=== PATIENT | male | born 1960 | race Caucasian/White ===

== ENCOUNTER 2021-10-06 18:08 | Emergency (ER) | payer OTHER, SELFPAY ==
[2021-10-06] VITALS (32 sets, daily range): BP systolic 141–180; BP diastolic 78–104; PULSE 58–94; RESP 11–25; TEMP 36.3–36.6; O2SAT 94–99
--- NOTE | ~2021-10-06 | XR_ITS ---
EXAMINATION: XR chest 1V portable Exam Date/Time: 10/06/2021 18:45 CDT HISTORY: central chest pain today Comparison: None available. RESULT: Lines, tubes, and devices: None. Lungs and pleura: Clear. Cardiomediastinal silhouette: Aortic ectasia. Other: No acute osseous or upper abdominal finding. IMPRESSION: No acute cardiopulmonary process. Reviewed, dictated and finalized at location K.
--- NOTE | ~2021-10-06 | CT_ITS ---
EXAMINATION: CT abdomen pelvis wo con DATE: 10/06/2021 18:54 INDICATION: epigastric discomfort with nausea TECHNIQUE: Computed tomography (CT) of the abdomen and pelvis was performed without intravenous contr ast. Automated exposure control and iterative reconstruction technique were employed. The dose-length product was 522.45 mGy-cm. COMPARISON: None FINDINGS: Lower thorax: Unremarkable Liver: Normal. Biliary/Gallbladder: Gallbladder is normal. No bile duct dilation. Pancreas: No mass or duct dilation. Spleen: Normal. Adrenals:No mass. Kidneys: 5.6 cm simple left midpole cyst. 2.4 cm right mid pole hemorrhagic or proteinaceous cyst. Ri ght upper pole hypodensity too small to characterize but likely represents a cyst. No hydronephrosis GI tract: Multiple loops of thin-walled dilated small bowel in the left upper and mid abdomen with co nsiderable surrounding mesenteric edema, fluid, and multiple sites suggestive of pneumatosis. No defi nitive transition point. Appendix not confidently visualized. Mesentery/Peritoneum: No ascites, mass, or free air. Retroperitoneum: No mass. This chronic arterial calcifications. Pelvis: Pelvic organs are within normal limits. Soft Tissues: Soft tissues and body wall unremarkable. Bones: No acute osseous finding. IMPRESSION: Small bowel obstruction with findings that can be seen with bowel ischemia. Infectious/inflammatory e tiologies are not excluded. A definitive transition point or obstructing mass is not detected. Reviewed, dictated and finalized at location K. IMPRESSION: Small bowel obstruction with findings that can be seen with bowel ischemia. Inf ectious/inflammatory etiologies are not excluded. A definitive transition point or obstructing mass is not detected.
--- NOTE | 2021-10-06 18:17 | ECG_ITS ---
Measurements Intervals [place] Rate: 60 P: 126 WY: 203 QRS: 191 QRSD: 104 T: 148 QT: 429 QTc: 432 Interpretive Statements SINUS RHYTHM ARM LEADS REVERSED [INVERTED P AND QRS IN I] NO PREVIOUS ECG AVAILABLE FOR COMPARISON Electronically Signed On 10-06-2021 19:28:36 CDT by Ruth Thomas M.D.
--- NOTE | 2021-10-06 18:32 | ED.ABDPAIN ---
HPI - Abdominal Pain General Chief Complaint: Abdominal Pain Stated Complaint: Epigastric pain Time Seen by Provider: 10/06/21 18:12 Source: patient and RN notes reviewed Mode of arrival: ambulatory Limitations: no limitations History of Present Illness MD elicited complaint: abdominal pain (epigastric discomfort only.) Pertinent past history: myocardial infarction Onset (ago): hour(s) (8) Pain Consistency: colicky Location: epigastric Severity: mild Pain scale (0-10): 4 Quality: cramping Radiation: none Exacerbating factors: nothing Relieving factors: nothing Associated symptoms: nausea Related Data Home Medications Medication Instructions Recorded Confirmed amoxicillin 875 mg-potassium 1 tablet PO QID 10/06/21 10/06/21 clavulanate 125 mg tablet atorvastatin 20 mg tablet 1 tablet DAILY 10/06/21 10/06/21 losartan 25 mg tablet 1 tablet DAILY 10/06/21 10/06/21 meloxicam 15 mg tablet 1 tablet DAILY 10/06/21 10/06/21 metoprolol tartrate 25 mg tablet 1 tablet BID 10/06/21 10/06/21 Allergies Allergy/AdvReac Type Severity Reaction Status Date / Time No Known Allergies Allergy Verified 10/06/21 18:21 Review of Systems Review of Systems: All systems reviewed & are unremarkable except as noted in HPI and below Constitutional: Constitutional: Reports no additional constitutional complaints Eyes: Eyes: Reports no additional eye complaints ENT: Reports system reviewed and no additional complaints, except as documented Cardiovascular: Cardiovascular: Reports no additional cardiovascular complaints Respiratory: Respiratory: Reports no additional respiratory complaints Gastrointestinal: Gastrointestinal: Reports no additional gastrointestinal complaints Musculoskeletal: Musculoskeletal: Reports no additional musculoskeletal complaints Integumentary/Breasts: Skin/Breast: Reports system reviewed and no additional complaints, except as docu Neurologic: Reports system reviewed and no additional complaints, except as documented Psychiatric: Psychiatric: Reports no additional psychiatric complaints Endocrine: Endocrine: Reports no additional endocrine complaints Hematologic/Lymphatic: Hematologic/Lymphatic: Reports no additional hematologic/lymphatic complaints Allergic/Immunologic: Allergic/Immunologic: Reports no additional allergic/immunologic complaints PMFSH Past Medical History Medical History (Updated 10/06/21 @ 21:50 by Wojciech Canada MD) Gastritis Small bowel obstruction Exam Const: General: healthy appearing and no acute distress Nutritional Appearance: well nourished Orientation/consciousness: patient oriented x3 Limitations: no limitations HENMT: Head: normal to inspection Ears: external ears normal, TM's normal bilaterally and EAC's normal General nose exam: Normal external nose present and Normal nares present Face and sinus: normal facial exam and sinuses nontender Mouth: Yes Normal oral and palatal mucosa present and Yes moist mucous membranes Teeth and gingiva: dentition normal Throat: posterior oropharynx normal Eyes: Conjunctivae: conjunctivae normal Pupils: Equal, round and reactive pupils present EOM: EOMs intact bilaterally Neck: Neck: normal visual inspection, no lymphadenopathy and no meningeal signs Chest: Chest palpation & inspection: normal inspection of the chest Resp: Effort & Inspection: normal respiratory effort Auscultation: clear to auscultation bilaterally Cardio: Rate: regular rate Rhythm: regular rhythm GI: GI Palp: Yes Soft to palpation and Yes Tenderness to palpation present (GI) (minimal epigastric and LLQ tenderness) Auscultation: normal bowel sounds : General: Yes bladder normal to palpation and Yes no CVA tenderness Back/Spine/Pelvis: Back: no CVA tenderness Skin: General skin exam: normal color Rashes: no rashes Wounds: no wounds Neuro: General: patient oriented x3, moves all extremities, no meningeal signs, no focal motor deficits an
[2021-10-06] MEDS: ASPIRIN 81 MG CHEWABLE TABLET 324 MG PO (18:33)
[2021-10-06] MEDS: ONDANSETRON INJ 4 MG/2 ML VIAL IV PUSH (18:40)
--- NOTE | 2021-10-06 18:45 | PC.NURSE ---
Pt off floor to radiology
[2021-10-06] MEDS: SODIUM CHLORIDE 0.9% IV 500 ML 999 ML IV CONT (19:14)
[2021-10-06] MEDS: PANTOPRAZOLE SODIUM IV 40 MG VIAL IV PUSH (19:16)
[2021-10-06 19:17] LABS: Basophils Absolute Auto 0.07 K/mm3 (0.00-0.10); Basophils Percent Auto 0.6 % (0.0-1.0); Eosinophils Absolute Auto 0.04 K/mm3 (0.02-0.50); Eosinophils Percent Auto 0.3 % (1.0-6.0); Hematocrit 48.6 % (40.0-54.0); Hemoglobin 16.9 g/dL (14.0-18.0); Immature Granulocyte Absolute 0.03 K/mm3 (0.00-0.00); Immature Granulocyte Percent A 0.3 % (0.0-0.0); Lymphocytes Absolute Auto 1.69 K/mm3 (1.10-4.50); Lymphocytes Percent Auto 14.2 % (18.0-42.0); Mean Corpuscular HGB Conc 34.8 g/dL (32.0-36.0); Mean Corpuscular Hemoglobin 31.1 pg (27.0-31.0); Mean Corpuscular Volume 89.5 fL (78.0-102.0); Mean Platelet Volume 11.2 fl (8.7-11.0); Monocytes Absolute Auto 0.59 K/mm3 (0.10-0.90); Neutrophils Absolute Auto 9.5 K/mm3 (1.7-7.2); Neutrophils Percent Auto 79.6 % (50.0-70.0); Platelet Count Result 220 K/mm3 (150-420); Red Blood Count 5.43 M/mm3 (4.70-6.10); Red Cell Distribution Width 12.2 % (11.6-14.4); White Blood Count 11.9 K/mm3 (4.8-10.8)
[2021-10-06 19:33] LABS: Alanine Aminotransferase 36 U/L (16-63); Albumin Level 4.2 g/dL (3.4-5.0); Alkaline Phosphatase 102 U/L (46-116); Anion Gap 9 mmol/L (8-16); Aspartate Amino Transferase 21 U/L (15-37); Bilirubin,Total 0.6 mg/dL (0.00-1.00); Blood Urea Nitrogen 17 mg/dL (7-18); Calcium 9.3 mg/dL (8.5-10.1); Carbon Dioxide 27 mmol/L (21-32); Chloride 102 mmol/L (98-108); Estimated CRCL calculation 82 ml/min; Estimated Glomerular Filt Rate > 60; Glucose 140 mg/dL (70-99); Lipase 108 U/L (73-393); NT Pro B Type Natriuretic Pept 70 pg/mL (0-125); Osmolality Calculated 289 mOsm/kg (285-295); Sodium 138 mmol/L (136-145); Total Protein 7.4 g/dL (6.4-8.2)
[2021-10-06 19:55] LABS: Add Urine Microscopic? YES; Appearance Urine Clear (Clear); Bilirubin Urine Negative (Negative); Blood Urine Negative (Negative); Color Urine Yellow (Yellow); Glucose Urine UA Negative (Negative); Ketones Urine Trace (Negative); Leukocyte Esterase Ur Negative LEU/UL (Negative); Nitrate Urine Negative (Negative); Protein Urine Negative (Negative); Urobilinogen Urine 0.2 mg/dL (0.2-1.0); pH Urine 6.5 (5.0-8.0)
[2021-10-06 20:03] LABS: Mucus Urine Moderate /lpf; RBC Urine 0-2 /hpf (0-2); Squamous Epithelial Cell Urine Occasional /hpf (Few)
--- NOTE | 2021-10-06 20:22 | PC.NURSE ---
ERP in to speak c pt and about POC for transfer. Pt wants to go to [facility]. paged, unable to get in contact c at this time.
--- NOTE | 2021-10-06 21:06 | PC.NURSE ---
Pt's states that pt has a GI doctor at [facility] on [facility] in [place]. RN contacted transfer number and was informed that beds are full and pt would be placed on waiting list.
--- NOTE | 2021-10-06 22:00 | PC.NURSE ---
Pt wants to attempt to take POV for transfer and is feeling questionable about getting the NG tube. Pt was educated on the importance of NG tube. Pt is still anxious.
[2021-10-06] MEDS: metroNIDAZOLE 500 MG/ISO 100ML 500 MG/100 ML BAG 100 MG IVPB (22:01)
[2021-10-06 22:18] LABS: Lactic Acid Reflex 1.4 mmol/L (0.4-2.0)
--- NOTE | 2021-10-06 22:28 | PC.NURSE ---
RN attempted to place 18F NG tube into both of pt's nostrils. Even after attempting to reeducate pt multiple times on the importance of the NG tube, pt still refused the NG tube. Pt states he cannot tolerate it. There was resistance met on pt's left nostril.
== END 2021-10-06 23:05 | disposition short-term general hospital (02) ==
PROVIDERS: Emergency Provider Emergency Medicine
DX: K56.609 Unspecified intestinal obstruction, unspecified as to partial versus complete obstruction (principal)
CPT/HCPCS: 36415; 71045; 74176; 80053; 81001; 83605; 83690; 83880; 84484; 85025; 93005; 96365; 96367; 96375; 99285; A9270; C9113; J0696; J2405; J7040

== ENCOUNTER 2021-10-07 00:55 | Inpatient (IN) | payer OTHER, SELFPAY ==
[2021-10-07] VITALS (7 sets, daily range): BP systolic 131–174; BP diastolic 82–92; PULSE 60–61; RESP 16–20; TEMP 36.9–37.5; O2SAT 96–98; BMI 24.9
--- NOTE | 2021-10-07 | ADMGEN ---
This patient, Ethan Concepcion, was admitted to Medical Room 259-01. Patient/family oriented to hospital policies and general routines including ID bracelet, bed and alarms, visiting hours, pain management, procedures, bathroom and other care routines, personal items, smoking policy, room service/diet, and visiting hours. Information on how to activate the Rapid Response Team has been discussed. Patient/Family are encouraged to report perceived risks to care and to ask questions if they do not understand what they are told or what they should do.
--- NOTE | ~2021-10-07 | XR_ITS ---
EXAMINATION: XR abdomen obstructive series DATE: 10/07/2021 08:35 INDICATION: Follow-up small bowel obstruction TECHNIQUE: Supine and upright views of the abdomen. FINDINGS: 10/07/2021 and 10/06/2021 The visualized lung parenchyma is normal.. There are mildly dilated small bowel loops in the left abd omen. Moderate colonic fecal loading. There are pelvic phleboliths. Gas and stool are seen throughout the colon to the level of the rectum. There is no free air. IMPRESSION: 1. Mildly dilated small bowel, consistent with small bowel obstruction versus ileus. Reviewed, dictated and finalized at location B.
--- NOTE | ~2021-10-07 | XR_ITS ---
EXAMINATION: XR abdomen/kub 1V DATE: 10/07/2021 05:49 INDICATION: Small bowel obstruction. TECHNIQUE: A supine view of the abdomen on 3 radiographs was obtained. COMPARISON: CT abdomen and pelvis 10/06/2021 FINDINGS: There is dilated small bowel in left abdomen. The colon is decompressed. IMPRESSION: 1. Persistently dilated small bowel in left abdomen, consistent with small bowel obstruction. Reviewed, dictated and finalized at location A. IMPRESSION: 1. Persistently dilated small bowel in left abdomen, consistent with small opal l obstruction.
--- NOTE | ~2021-10-07 | XR_ITS ---
EXAMINATION: XR sm bowel follow through DATE: 10/07/2021 12:48 INDICATION: Small bowel obstruction. TECHNIQUE: Oral contrast was administered, and a time course of radiographs of the abdomen was obtain ed. Fluoroscopy of the small bowel was not performed. Fluoroscopy exposure time was 0 minutes. The to leo number of images was 6. COMPARISON: CT abdomen and pelvis 10/06/2021 FINDINGS: There are no dilated loops of bowel. There is no abnormal mass or stricture. Transit time from the st omach to proximal colon was approximately 30 minutes. IMPRESSION: 1. Normal small bowel series. Reviewed, dictated and finalized at location A.
--- NOTE | 2021-10-07 00:49 | PM.IMHP ---
H&P: HPI History of Present Illness Date/Time: 10/07/21 00:49 Chief Complaint: Abdominal pain. Narrative: This is a 61-year-old male with past medical history significant for hypertension, dyslipidemia, tobacco dependence. Patient comes acid transfer from [facility] Emergency Room after he presented there with abdominal pain of about 8 hours duration since early in the morning with no vomiting but some nausea, had 1 episode of a bowel movement patient has been passing gas as well has been his usual state of health up until this he denies any fevers, rigors, changes in stool character, no melena, no bright red blood per rectum, no coffee-ground emesis, no weight loss. At the time of my visit patient denied any discomfort. Preliminary workup was significant for CT of abdomen and pelvis with several dilated and fluid air-filled bowel loops reported as small bowel obstruction. Patient is being admitted for further evaluation, management and treatment. Review of Systems Review of Systems: Abdominal pain. Constitutional: Constitutional: Denies chills, Denies fever(s) and Denies night sweats Eyes: Eyes: Denies change in vision ENT: Denies dysphagia, Denies vertigo, Denies dizziness and Denies odynophagia Cardiovascular: Cardiovascular: Denies chest pain, Denies syncope, Denies pedal edema, Denies irregular heart rhythm, Denies claudication, Denies lightheadedness, Denies radiating jaw, neck or arm pain, Denies palpitations, Denies dyspnea on exertion and Denies paroxysmal nocturnal dyspnea Respiratory: Respiratory: Denies change in phlegm color, Denies chest congestion, Denies cough and Denies excessive phlegm production Gastrointestinal: Gastrointestinal: Reports abdominal pain, Denies melena, Reports excessive flatus, Denies dyspepsia, Denies heartburn, Denies diarrhea, Reports nausea and Denies vomiting Genitourinary: Genitourinary: Reports no additional male genitourinary complaints and Reports as per HPI Musculoskeletal: Musculoskeletal: Denies back pain, Denies myalgias, Denies arthralgias and Denies joint swelling Integumentary/Breasts: Skin/Breast: Denies rash Neurologic: Denies focal weakness and Denies Sensory deficit (Neuro) Psychiatric: Psychiatric: Reports no additional psychiatric complaints and Reports as per HPI Endocrine: Endocrine: Denies cold intolerance, Denies fatigue, Denies flushing, Denies heat intolerance, Denies polyphagia, Denies polydipsia and Denies palpitations Hematologic/Lymphatic: Hematologic/Lymphatic: Reports no additional hematologic/lymphatic complaints and Reports as per [facility] Past Medical History Medical History (Updated 10/07/21 @ 03:32 by Isabel Rojas MD) Gastritis Small bowel obstruction Family History Family History (Updated 10/07/21 @ 00:35 by Caio Hernandez RN) Mother Cancer Father COPD (chronic obstructive pulmonary disease) Sibling Diabetes mellitus Social History Social History Smoking packs per day: 0.5 Smoking cigarettes per day: 10.0 Years smoked: 30 Smoking pack-years: 15.00 Smoking status: Current every day smoker Tobacco type: cigarettes Alcohol intake: never Substance use: never Spiritual care concerns: No Meds Home Medications and Allergies Home Medications Medication Instructions Recorded Confirmed Type atorvastatin 20 mg tablet 1 tablet DAILY 10/06/21 10/07/21 History losartan 25 mg tablet 1 tablet DAILY 10/06/21 10/07/21 History meloxicam 15 mg tablet 1 tablet DAILY 10/06/21 10/07/21 History metoprolol tartrate 25 mg tablet 0.5 tablet BID 10/06/21 10/07/21 History aspirin 81 mg chewable tablet 1 tablet PO DAILY 10/07/21 10/07/21 History cephalexin 500 mg capsule 1 cap PO QID 10/07/21 10/07/21 History Allergies Allergy/AdvReac Type Severity Reaction Status Date / Time No Known Allergies Allergy Verified 10/07/21 00:15 Exam Narrative: P
[2021-10-07] MEDS: DEXTROSE 5%/0.45% SOD CHL 1,000 ML 100 ML IV CONT ×2 (01:44→11:12)
[2021-10-07] MEDS: ACETAMINOPHEN 500 MG TABLET 1000 MG PO (04:11)
[2021-10-07 05:44] LABS: Basophils Absolute Auto 0.1 K/mm3 (0.0-0.1); Basophils Percent Auto 0.8 % (0.2-1.2); Eosinophils Absolute Auto 0.1 K/mm3 (0-0.3); Eosinophils Percent Auto 0.7 % (0-4.4); Hematocrit 43.9 % (42.0-52.0); Hemoglobin 15.7 g/dL (14.0-18.0); Immature Granulocyte Absolute 0.03 K/mm3 (0.00-0.031); Immature Granulocyte Percent A 0.3 % (0-0.5); Lymphocytes Absolute Auto 1.82 K/mm3 (0.9-3.2); Lymphocytes Percent Auto 20.4 % (18.3-44.2); Mean Corpuscular HGB Conc 35.8 g/dl (32-36); Mean Corpuscular Hemoglobin 31.1 pg (26-34); Mean Corpuscular Volume 86.9 fl (80-100); Mean Platelet Volume 10.9 fl (7.4-10.4); Monocytes Absolute Auto 0.5 K/mm3 (0.1-0.6); Monocytes Percent Auto 6.1 % (2.6-8.5); Neutrophils Absolute Auto 6.4 K/mm3 (1.3-6.7); Neutrophils Percent Auto 71.7 % (45.5-73.1); Platelet Count Result 205 k/mm3 (150-375); Red Blood Count 5.05 M/mm3 (4.6-6.20); Red Cell Distribution Width 12.3 % (11.5-14.5); White Blood Count 8.9 K/mm3 (4.5-10.0)
[2021-10-07 05:59] LABS: Anion Gap 3 mmol/L (8-16); Blood Urea Nitrogen 11 mg/dL (9-20); Calcium 8.7 mg/dL (8.4-10.2); Carbon Dioxide 26 mmol/L (22-30); Chloride 108 mmol/L (98-107); Estimated CRCL calculation 97 ml/min; Estimated Glomerular Filt Rate > 60; Glucose 163 mg/dL (65-110); Magnesium 2.1 mg/dL (1.6-2.3); Phosphorus 2.7 mg/dL (2.5-4.5); Potassium 3.8 mmol/L (3.4-5.0); Sodium 137 mmol/L (137-145)
[2021-10-07] MEDS: ENOXAPARIN 40 MG/0.4 ML SYRINGE SUB-Q (08:37)
[2021-10-07] MEDS: BISACODYL 10 MG SUPPOSITORY RECTAL (10:04)
--- NOTE | 2021-10-07 11:24 | PM.CNGS ---
Assessment and Plan Assessment and plan (1) Small bowel obstruction: Code(s): K56.609 - Unspecified intestinal obstruction, unspecified as to partial versus complete obstruction Status: Acute Assessment and Plan: CT scan reviewed and discussed with the patient in detail. This suggests a small bowel obstruction with mesenteric edema, fluid, and possible pneumatosis concerning for bowel ischemia versus infectious or inflammatory etiology. The patient does not clinically correlate with the CT findings. His abdominal exam is completely benign. He is no longer having any abdominal pain and has not had any nausea or vomiting. His lactic acid is normal and his WBC count is actually normal today. He does not have any complaints of diarrhea, which would suggest possibly gastroenteritis as an etiology. He has no previous abdominal surgeries that would suggest he would be at high risk for having intra-abdominal adhesions. The etiology of this is unclear, but the suspicion of bowel ischemia is extremely low. His plain films this morning show some improvement in his small bowel dilatation and he actually has a fair amount of stool and gas throughout his colon. He is refusing an NG tube, but has improved significantly since being admitted. We ordered a Gastrografin small bowel follow through to further evaluate, which was completely normal with at transit time to the colon in 30 minutes. There was no evidence of ulceration or abnormalities of the small bowel. Will allow the patient to try clear liquids and monitor him closely. Repeat labs again tomorrow morning. (2) Coronary artery disease: Code(s): I25.10 - Atherosclerotic heart disease of [place] coronary artery without angina pectoris Status: Acute Assessment and Plan: S/p stent placement x 3 in 2017 at [facility]. Currently on once daily baby aspirin. (3) Type 2 diabetes mellitus: Code(s): E11.9 - Type 2 diabetes mellitus without complications Status: Acute Assessment and Plan: Not currently on any home medication and reportedly diet-controlled. Glucose up 160. Will add diabetic diet restrictions when advancing diet. Management per Hospitalist. (4) Hypertension: Code(s): I10 - Essential (primary) hypertension Status: Acute Assessment and Plan: BP slightly high. Okay to resume oral home medications from our standpoint. (5) Tobacco dependence: Code(s): F17.200 - Nicotine dependence, unspecified, uncomplicated Status: Acute Assessment and Plan: Encouraged cessation. Additional Plan I have discussed the patient's case and plan of care with Dr. Bourgeois. Thank you for allowing us to see the patient in consultation and we will continue to follow along with you. History of Present Illness Consult details Consult date: 10/07/21 Reason for consult: other (Small-bowel obstruction with CT suggesting possible ischemia) Requesting physician: Isabel Rojas MD Narrative: This is a 61-year-old male with a history of myocardial infarction, hypertension, and hyperlipidemia who was directly admitted from [place] ER overnight for small bowel obstruction. The patient reports a sudden onset of abdominal pain 2 nights ago. He reports eating popcorn, a turkey sandwich, cantaloupe, and drinking coffee for dinner Thursday night. About an hour or 2 after eating, he began having abdominal pain. He points to the center of his abdomen when describing the location of pain. He reports associated nausea, but no vomiting. After having pain, he had a good formed bowel movement. Due to the unrelenting pain, he presented to the ER in [place] yesterday. CT scan of the abdomen and pelvis showed a small bowel obstruction with findings that can be seen with bowel ischemia/infection/inflammation, with findings of mesenteric edema, fluid, and suggestion of pneumatosis. Labs showed a WBC 11,900, lactic acid 14, and glucose 140. Chest x-ray showed no
[2021-10-07] MEDS: METOPROLOL TARTRATE 12.5 MG TABLET BY MOUTH (16:57)
[2021-10-07] MEDS: LOSARTAN POTASSIUM 25 MG TABLET BY MOUTH (17:19)
[2021-10-07] MEDS: ATORVASTATIN 20 MG TABLET BY MOUTH (17:19)
[2021-10-08 00:39] VITALS: BP 135/88; PULSE 56; RESP 14; TEMP 36.4; O2SAT 97
[2021-10-08 03:56] VITALS: BP 156/87; PULSE 55; RESP 16; TEMP 36.4; O2SAT 98
[2021-10-08 05:32] LABS: Hematocrit 44.6 % (42.0-52.0); Hemoglobin 15.5 g/dL (14.0-18.0); Mean Corpuscular HGB Conc 34.8 g/dl (32-36); Mean Corpuscular Hemoglobin 30.6 pg (26-34); Mean Corpuscular Volume 88.1 fl (80-100); Mean Platelet Volume 10.8 fl (7.4-10.4); Platelet Count Result 206 k/mm3 (150-375); Red Blood Count 5.06 M/mm3 (4.6-6.20); Red Cell Distribution Width 12.3 % (11.5-14.5); White Blood Count 9.2 K/mm3 (4.5-10.0)
[2021-10-08 05:40] LABS: Anion Gap 1 mmol/L (8-16); Blood Urea Nitrogen 9 mg/dL (9-20); Calcium 8.7 mg/dL (8.4-10.2); Carbon Dioxide 30 mmol/L (22-30); Chloride 107 mmol/L (98-107); Estimated CRCL calculation 86 ml/min; Estimated Glomerular Filt Rate > 60; Glucose 127 mg/dL (65-110); Potassium 3.7 mmol/L (3.4-5.0); Sodium 138 mmol/L (137-145)
[2021-10-08] MEDS: LOSARTAN POTASSIUM 25 MG TABLET BY MOUTH (08:59)
[2021-10-08] MEDS: ATORVASTATIN 20 MG TABLET BY MOUTH (08:59)
[2021-10-08] MEDS: ENOXAPARIN 40 MG/0.4 ML SYRINGE SUB-Q (09:00)
[2021-10-08 09:01] VITALS: PULSE 55
[2021-10-08 10:01] VITALS: BP 145/77; PULSE 61; RESP 16; TEMP 36.7; O2SAT 98
--- NOTE | 2021-10-08 11:13 | PM.PNGS ---
Progress Note: A&P Assessment and Plan (1) Small bowel obstruction: Code(s): K56.609 - Unspecified intestinal obstruction, unspecified as to partial versus complete obstruction Status: Acute Assessment and Plan: Gastrografin SBFT unremarkable with normal transit time of 30 minutes and no abnormalities of the small bowel. No indication for surgical intervention at this time. Okay to discharge from our standpoint now that he is tolerating a solid diet. Recommend f/u with PCP to discuss any further outpatient work-up. F/u with surgery only as needed. We also recommend stopping his meloxicam, which he is taking for shoulder pain, in case he could have an ulcer that contributed to this episode. I recommended he discuss this with his [employer] as well at [facility] who he will be seeing in the near future for a colonoscopy. (2) Coronary artery disease: Code(s): I25.10 - Atherosclerotic heart disease of [place] coronary artery without angina pectoris Status: Acute Assessment and Plan: S/p stent placement x 3 in 2017 at [facility]. Currently on once daily baby aspirin. (3) Type 2 diabetes mellitus: Code(s): E11.9 - Type 2 diabetes mellitus without complications Status: Acute Assessment and Plan: Continue diabetic diet, f/u with PCP. (4) Hypertension: Code(s): I10 - Essential (primary) hypertension Status: Acute (5) Tobacco dependence: Code(s): F17.200 - Nicotine dependence, unspecified, uncomplicated Status: Acute Assessment and Plan: Encouraged cessation again today. F/u with PCP for management. Additional Plan I have discussed the patient's case and plan of care with Dr. Borugeois. Subjective Subjective Date/Time Seen: 10/08/21 11:13 Patient reports: no new complaints, feels better, tolerating a regular diet, flatus, bowel movement and afebrile Interval history: Patient seen and examined. He denies any abdominal pain or nausea. He does report 1 episode of vomiting once on the floor about 2 hours after his Gastrografin study, but did not feel nauseated and has not had any other episodes since. He denies having any abdominal pain yesterday at all. Tolerated clear liquids and has been advanced to a regular diet this morning. He has tolerated the regular diet for breakfast. He has had multiple liquid bowel movements following the contrast study last night and today. He is passing lots of gas. No other complaints at this time. The patient does endorse that he had a fairly large quantity of popcorn prior to the onset of symptoms at home, and was wondering if this could have caused his issues. Review of Systems Review of Systems: All systems reviewed & are unremarkable except as noted in HPI and below Exam Const: General: comfortable, no acute distress and awake Orientation/consciousness: patient oriented x3 GI: Inspection: normal to inspection and non-distended GI Palp: Yes Soft to palpation, No Tenderness to palpation present (GI), No Guarding due to palpation present (GI), No Rigid due to palpation, Yes No hepatosplenomegaly present, No Hernia present, No Palpable mass present and No Rebound tenderness present Percussion: Yes normal to percussion Auscultation: normal bowel sounds Neuro: General: moves all extremities and no focal motor deficits Extrem: General: normal to inspection Psych: Insight: Good insight present (Psych) Judgement: Good judgement present (Psych) Objective Data Vital Signs Vital Signs: Vital Signs - 24 hr 10/07/21 16:00 10/07/21 16:57 10/07/21 20:00 Temperature 98.4 F Pulse Rate 60 60 60 Respiratory Rate 16 16 Blood Pressure 163/92 H Pulse Oximetry 98 98 Oxygen Delivery Room Air 10/07/21 22:03 10/08/21 00:39 10/08/21 03:56 Temperature 98.6 F 97.6 F 97.6 F Pulse Rate 60 56 L 55 L Respiratory Rate 16 14 16 Blood Pressure 131/82 135/88 156/87 H Pulse Oximetry 97 97 98 Oxygen Delivery
--- NOTE | 2021-10-08 11:38 | PM.DS ---
DS: Admitting Diagnosis Discharge Date October 08, 2021 Admitting Diagnosis Small-bowel obstruction DS: Discharge Diagnosis Discharge Diagnosis (1) Small bowel obstruction: Code(s): K56.609 - Unspecified intestinal obstruction, unspecified as to partial versus complete obstruction Status: Acute Assessment and Plan: Supportive care alleviated small-bowel obstruction No further plans for surgery, discharge home (2) Abdominal pain: Code(s): R10.9 - Unspecified abdominal pain Status: Acute Assessment and Plan: Supportive care Improved (3) Tobacco dependence: Code(s): F17.200 - Nicotine dependence, unspecified, uncomplicated Status: Acute Assessment and Plan: Cessation counseled DS: Summary Hospital Course Hospital Course: The patient was admitted for abdominal pain found have possible small-bowel obstruction. He refused NG tube and conservative therapy was initiated. A subsequent self-resolved and is tolerating a diet. Surgery consulted the patient did not have any further recommendations. Patient be discharged home Time Spent with Patient Time attestation: Total time spent providing and/or coordinating discharge services: Exam Narrative: Patient is laying in bed Const: General: cooperative, comfortable, no acute distress, well developed, alert, awake and other (Well-appearing) Nutritional Appearance: average body habitus Orientation/consciousness: patient oriented x3 Limitations: no limitations HENMT: Head: normal to inspection, normocephalic and atraumatic Ears: hearing grossly normal bilaterally Face and sinus: normal facial exam Eyes: General: appearance normal, both eyes and all related structures Pupils: Equal, round and reactive pupils present EOM: EOMs intact bilaterally Neck: Neck: full ROM, no lymphadenopathy and no JVD Thyroid: thyroid normal Lymphatic: no lymphadenopathy noted Resp: Effort & Inspection: normal respiratory effort and able to speak in complete sentences Auscultation: clear to auscultation bilaterally Cardio: Jugular venous distension: no JVD Rate: regular rate Rhythm: regular rhythm Heart sounds: S1 normal heart sound present and S2 normal heart sound present GI: Inspection: normal to inspection : General: Yes deferred Skin: Rashes: no rashes Wounds: no wounds Neuro: General: patient oriented x3 and CN's II-XI intact bilaterally Cranial nerves: Yes CN's II-XII intact bilaterally and Yes Equal, round and reactive pupils present Cognition (Neuro): normal cognition Speech: normal speech Gait exam (Neuro): Normal gait present Motor exam (neuro): 5/5 motor strength present throughout Sensory Exam: No Sensory deficit (Neuro) Extrem: General: normal to inspection, full ROM, no joint enlargement and no pedal edema DS: Data Data Completed and Pending Labs on day of discharge: Labs from last 24 hours 10/08/21 10/08/21 05:22 05:22 WBC 9.2 RBC 5.06 Hgb 15.5 Hct 44.6 MCV 88.1 MCH 30.6 MCHC 34.8 RDW 12.3 Plt Count 206 MPV 10.8 H Sodium 138 Potassium 3.7 Chloride 107 Carbon Dioxide 30 Anion Gap 1 L BUN 9 Creatinine 0.80 Estim Creat Clear Calc 86 Estimated GFR > 60 Glucose 127 H Calcium 8.7 Discharge Plan Discharge Attending physician on discharge: Bull Back Consulting providers: Deacon Bourgeois Discharging Clinician: Bull Back Patient Disposition: Home, Self-Care Activity: no preference Diet: as tolerated Discharge Instructions: Follow-up with your PCP in 2 weeks. We had Radiology created disc of all the images you had while hospitalized. Please bring this disc 2 year follow-up appointment so they will be able to review these at your follow-up. If you develop abdominal pain or vomiting, return to the ED. Would strongly encourage you to quit smoking. Would also recommend to stop your meloxicam and try to transiti
== END 2021-10-08 13:06 | disposition home or self-care (01) | DRG 390 ==
PROVIDERS: Admitting Provider Internal Medicine; Visit Provider Chiropractor
DX: K56.609 Unspecified intestinal obstruction, unspecified as to partial versus complete obstruction (principal); F17.210 Nicotine dependence, cigarettes, uncomplicated; Z79.899 Other long term (current) drug therapy; Z80.9 Family history of malignant neoplasm, unspecified; Z79.82 Long term (current) use of aspirin; E78.5 Hyperlipidemia, unspecified; I10 Essential (primary) hypertension; I25.2 Old myocardial infarction; I25.10 Atherosclerotic heart disease of native coronary artery without angina pectoris; E11.9 Type 2 diabetes mellitus without complications
CPT/HCPCS: 36415; 74018; 74019; 74250; 80048; 83735; 84100; 85025; 85027; A9270; J1650

== ENCOUNTER 2023-01-19 09:01 | Emergency (ER) | payer OTHER, SELFPAY ==
[2023-01-19 09:08] VITALS: BP 158/100; PULSE 71; RESP 16; TEMP 36.8; O2SAT 100
[2023-01-19] MEDS: CYCLOBENZAPRINE HCL 5 MG TABLET PO (10:49)
[2023-01-19] MEDS: ACETAMINOPHEN 500 MG TABLET 1000 MG PO (10:49)
[2023-01-19] MEDS: LIDOCAINE 5% PATCH 1 PATCH TRANSDERM (10:49)
--- NOTE | 2023-01-19 11:01 | ED.BACK ---
HPI - Back Pain/Injury General Chief Complaint: Back Pain/Injury Stated Complaint: Back pain right side Time Seen by Provider: 01/19/23 09:53 History of Present Illness HPI Narrative: This is a 62-year-old male, with chronic back pain, high blood pressure and hyperlipidemia, presents emergency department complaining of right-sided back and arm pain. The patient states this morning, he woke and felt a muscle spasm on the right back, radiating to the right arm. He rates this 610, described as cramping. He denies recent trauma but has been some heavy lifting recently. Related Data Home Medications Medication Instructions Recorded Confirmed atorvastatin 20 mg tablet 1 tablet DAILY 10/06/21 10/07/21 losartan 25 mg tablet 1 tablet DAILY 10/06/21 10/07/21 metoprolol tartrate 25 mg tablet 0.5 tablet BID 10/06/21 10/07/21 aspirin 81 mg chewable tablet 1 tablet PO DAILY 10/07/21 10/07/21 Allergies Allergy/AdvReac Type Severity Reaction Status Date / Time No Known Allergies Allergy Verified 01/19/23 09:02 Review of Systems Review of Systems: CONSTITUTIONAL: Denies fever, chills, or sweats. CARDIOVASCULAR: Denies chest pain, palpitations, or edema. RESPIRATORY: Denies cough or dyspnea. GASTROINTESTINAL: Denies abdominal pain, nausea, vomiting, or diarrhea. GENITOURINARY: Denies dysuria or hematuria. SKIN: Denies rash or itching. MUSCULOSKELETAL: Right-sided back pain denies joint pain, or myalgia. NEUROLOGIC: Denies headache, numbness, dizziness, or weakness. PSYCHIATRIC: Denies anxiety or depression. [facility] Past Medical History Medical History Coronary artery disease [place] in 2017 with coronary artery stent placement x 3 at [facility] Hyperlipidemia Hypertension Type 2 diabetes mellitus Surgical History Surgical History History of heart artery stent Family History Family History Mother Cancer Father COPD (chronic obstructive pulmonary disease) Sibling Diabetes mellitus Social History Social History Smoking packs per day: 0.5 Smoking cigarettes per day: 10.0 Years smoked: 30 Smoking pack-years: 15.00 Smoking status: Current every day smoker Tobacco type: cigarettes Alcohol intake: never Substance use: never Spiritual care concerns: No Exam Narrative: GENERAL: Well-developed, well-nourished, and in no acute distress. HEAD: Normocephalic, atraumatic. EYES: PERRLA and EOMI. CHEST: Clear to auscultation. No respiratory distress. No wheezes rales or rhonchi HEART: Regular rate and rhythm. No murmur heard. Normal peripheral pulses. ABDOMEN: Soft, nontender, nondistended, normal active bowel sounds. EXTREMITIES: Normal range of motion. No edema. BACK: Paraspinal muscle spasm noted at T6-8. No midline spine tenderness to palpation, no step-off or crepitus SKIN: Warm, dry, no rash. NEURO: Alert and oriented x3. Moving all 4 limbs purposefully. PSYCH: Normal mood and affect. Course Course Emergency Course: 11:20 - On reevaluation, the patient states his pain is much improved. I suspect muscle spasm as cause of his pain. Will discharge with muscle relaxers, lidocaine patch and recommendation for Tylenol for pain. Discussed return and emergency precautions including signs/symptoms of ACS and respiratory distress. The patient voiced understanding and is comfortable with the plan. All questions answered to his satisfaction. Vital Signs Vital signs: Vital Signs Temperature 98.2 F 01/19/23 09:08 Pulse Rate 71 01/19/23 09:08 Respiratory Rate 16 01/19/23 09:08 Blood Pressure 158/100 H 01/19/23 09:08 Pulse Oximetry 100 01/19/23 09:08 Temperature 98.2 F 01/19/23 09:08 Pulse Rate 70 01/19/23 11:38 Respiratory Rate 18 01/19/23 11:38 Blo
[2023-01-19 11:38] VITALS: BP 159/90; PULSE 70; RESP 18; O2SAT 100
== END 2023-01-19 11:40 | disposition home or self-care (01) ==
PROVIDERS: Emergency Provider Preventive Medicine Aerospace Medicine
DX: M54.6 Pain in thoracic spine (principal); M62.830 Muscle spasm of back; I25.10 Atherosclerotic heart disease of native coronary artery without angina pectoris; I25.2 Old myocardial infarction; I10 Essential (primary) hypertension; E78.5 Hyperlipidemia, unspecified; E11.9 Type 2 diabetes mellitus without complications; F17.210 Nicotine dependence, cigarettes, uncomplicated; Z95.5 Presence of coronary angioplasty implant and graft; Z79.82 Long term (current) use of aspirin
CPT/HCPCS: 99283; A9270

== ENCOUNTER 2024-03-30 07:24 | Emergency (ER) | payer OTHER, SELFPAY ==
[2024-03-30] VITALS (9 sets, daily range): BP systolic 154–189; BP diastolic 76–112; PULSE 74–90; RESP 14–20; TEMP 36.5–37.3; O2SAT 97–99
--- NOTE | ~2024-03-30 | CT_ITS ---
CTA chest abdomen pelvis Ordering provider: Aditya Cespedes MD History: . Back pain radiating to chest/abdomen . Comparison: None. Technique: CT angiogram chest, abdomen and pelvis was performed following timed intravenous injection of contrast. Thin slice axial images and reformatted coronal images were obtained. Three dimensional reformatted images of the chest were also obtained using a nfona workstation. Radiation reduction t echnique utilized. The dose-length product was 583.9 mGy-cm. 100 mL Omnipaque 350 was given IV. FINDINGS: CHEST: --THORACIC AORTA: Mild atheromatous disease. No aneurysm, dissection or mediastinal hematoma. Ascending aorta measures 3.6 cm. --GREAT VESSELS: Normal as visualized. --PULMONARY ARTERIES: No pulmonary embolus. --VISUALIZED THORACIC INLET: Normal. --MEDIASTINUM: Coronary arteries: Mild atheromatous disease. Heart/other: The heart is not enlarged. Lymph nodes: No mediastinal or hilar adenopathy. --LUNGS: 6 mm nodule is seen in the right middle lobe. 6 mm nodule is also seen in the right lower lobe. Tiny nodule is also seen in the right lower lobe adjacent to the transverse fissure measuring 4 mm. No pul monary masses. No infiltrates or effusions. No pneumothorax. Dependent atelectatic changes. --MUSCULOSKELETAL: Superficial soft tissues: The superficial soft tissues are normal. Bones: Age appropriate degenerative changes of the spine. ABDOMEN/PELVIS: --MUSCULOSKELETAL: Bones: Age appropriate degenerative changes of the spine. Superficial soft tissues: The superficial soft tissues are normal. --UPPER ABDOMINAL ORGANS: Liver: Small enhancing area seen in the dome of the liver segment #7/8 differential include HCC versu s hemangioma versus arteriovenous shunting. Three-month CT follow-up is advised. Gallbladder: Normal. Spleen: Normal. Stomach/duodenum: Normal. Pancreas: Normal. Slightly prominent pancreatic duct. Adrenals: Right adrenal adenoma is seen measuring 1.6 cm. No follow-up is advised unless clinically w arranted. Kidneys: Small lesion is seen in the right kidney lower pole measuring 1.9 cm which may be a cyst. Ma ss cannot be excluded. Tiny cyst in the right kidney upper pole is also noted. Ultrasound evaluation advised. Large cyst is seen in the left kidney midpole measuring 6 cm. --PELVIC ORGANS: The bladder is normal. No bladder stones. --BOWEL AND MESENTERY: Colon: No evidence of diverticulitis.. Slightly thickened wall of the appendix with measurement of 9 mm seen. Clinical evaluation for the area and follow-up is advised. Small Bowel: Normal. No obstruction. Peritoneum/mesentery: No free air or free fluid. No mesenteric lymphadenopathy. --RETROPERITONEUM: No retroperitoneal lymphadenopathy. --ARTERIES: ABDOMINAL AORTA: Mild atheromatous disease. No aneursym or dissection. RENAL ARTERIES: 2 renal arteries are seen in the right side. Otherwise, Normal. CELIAC AXIS: Normal. SMA: Normal. CAS: Normal. ILIAC AND VISUALIZED FEMORAL ARTERIES: Atherosclerotic changes with mild narrowing. MESENTERIC ARTERIES: Normal. IMPRESSION: CHEST: 1. No evidence of aortic dissection or pulmonary embolism. 2. No acute cardiopulmonary pathology. 3. Nodules in the right middle and lower lobe with the largest measuring 6 mm. 6 months follow-up CT is advised. ABDOMEN/PELVIS: 1. No evidence of aneurysm or dissection seen in the aorta. 2. Slightly thickened wall of the appendix. No surrounding fat stranding. Clinical correlation advis ed. 3. Small enhancing area in the liver. Follow-up advised to exclude hepatocellular carcinoma. 4. Right adrenal adenoma. No follow-up advised unless clinically warranted. 5. Allergy density in the right kidney lower pole which may be a complex cyst versus a mass. Ultraso und evaluation advised. 6. Bilateral renal cysts. Reviewed, dictated and finalized at location A. HANDISING INTERN IMPRESSION: CHEST: 1. No evidence of aortic dissection or pulmonary embolism. 2. No acute cardiopulmonary pathology. 3. Nodules in the right middle and lower lobe with the largest measuring 6 mm. 6 months follow-up CT is advised. ABDOMEN/PELVIS: 1. No evidence of aneurysm or dissection seen in the aorta. 2. Slightly thickened wall of the appendix. No surrounding fat stranding. Clin ical correlation advised. 3. Small enhancing area in the liver. Follow-up advised to exclude hepatocellu lar carcinoma. 4. Right adrenal adenoma. No follow-up advised unless clinically warranted. 5. Allergy density in the right kidney lower pole which may be a complex cyst versus a mass. Ultrasound evaluation advised. 6. Bilateral renal cysts.
--- NOTE | ~2024-03-30 | XR_ITS ---
EXAMINATION: XR chest 2V DATE: 03/30/2024 08:18 INDICATION: Chest pain. TECHNIQUE: Frontal and lateral views of the chest were obtained. COMPARISON: Chest single view 10/06/2021, CT abdomen and pelvis 10/06/2021 FINDINGS: There is mild atelectasis at left lung base. No pleural effusion or pneumothorax. The heart size is normal. IMPRESSION: 1. Mild atelectasis at left lung base. Reviewed, dictated and finalized at location A. PMENT INSPECTOR
--- NOTE | 2024-03-30 07:37 | ECG_ITS ---
Test Date: 2024-03-30 07:39:49 Measurements Intervals [place] Rate: 87 P: 51 SC: 193 QRS: -23 QRSD: 108 T: 43 QT: 380 QTc: 460 Interpretive Statements SINUS RHYTHM CANNOT R/O SEPTAL INFARCT, AGE INDETERMINATE ABNORMAL ECG No previous ECG available for comparison Electronically Signed On 03-30-2024 08:27:13 DUMP ATTENDANT by Richar Trejo D.O.
[2024-03-30 08:02] LABS: Basophils Absolute Auto 0.1 K/mm3 (0.0-0.1); Basophils Percent Auto 0.4 % (0.2-1.2); Eosinophils Absolute Auto 0.1 K/mm3 (0-0.3); Eosinophils Percent Auto 0.7 % (0-4.4); Hematocrit 45.3 % (42.0-52.0); Hemoglobin 16.1 g/dL (14.0-18.0); Immature Granulocyte Absolute 0.07 K/mm3 (0.00-0.031); Immature Granulocyte Percent A 0.6 % (0-0.5); Lymphocytes Absolute Auto 1.43 K/mm3 (0.9-3.2); Lymphocytes Percent Auto 12.3 % (18.3-44.2); Mean Corpuscular HGB Conc 35.5 g/dl (32-36); Mean Corpuscular Hemoglobin 30.8 pg (26-34); Mean Corpuscular Volume 86.8 fl (80-100); Mean Platelet Volume 11.1 fl (7.4-10.4); Monocytes Absolute Auto 0.9 K/mm3 (0.1-0.6); Neutrophils Absolute Auto 9.1 K/mm3 (1.3-6.7); Platelet Count Result 204 k/mm3 (150-375); Red Blood Count 5.22 M/mm3 (4.6-6.20); Red Cell Distribution Width 12.6 % (11.5-14.5); White Blood Count 11.6 K/mm3 (4.5-10.0)
[2024-03-30 08:13] LABS: Prothrombin Time 13.2 Seconds (11.1-14.7)
[2024-03-30 08:14] LABS: Partial Thromboplastin Time 29.8 Seconds (22.3-36.8)
[2024-03-30 08:16] LABS: Alanine Aminotransferase 18 U/L (6-50); Albumin Level 4.4 g/dL (3.5-5.1); Alkaline Phosphatase 110 U/L (38-126); Anion Gap 8 mmol/L (4-12); Aspartate Amino Transferase 23 U/L (17-59); Bilirubin,Total 0.9 mg/dL (0.2-1.3); Blood Urea Nitrogen 12 mg/dL (9-20); Calcium 9.3 mg/dL (8.4-10.2); Carbon Dioxide 26 mmol/L (22-30); Chloride 102 mmol/L (98-107); Estimated CRCL calculation 84 ml/min; Estimated Glomerular Filt Rate > 60; Glucose 168 mg/dL (65-110); Lipase 30 U/L (23-300); Sodium 136 mmol/L (137-145)
[2024-03-30 08:27] LABS: Troponin I < 0.012 ng/mL (0.000-0.034)
[2024-03-30 11:15] LABS: Troponin I < 0.012 ng/mL (0.000-0.034)
--- NOTE | 2024-03-30 13:25 | ED.GENADULT ---
HPI - General Adult General Chief complaint: Back Pain/Injury Stated complaint: mid back pain Time Seen by Provider: 03/30/24 07:52 History of Present Illness HPI narrative: this is a 63-year-old male presenting ED with chief complaint of back pain. Patient developed the pain at 5:15 a.m.. It is a sharp pain in his midthoracic area on the right. It is nonradiating constant. He says it feels like a pulled muscle. He has had a dry cough. He denies fevers chills chest pain, nausea vomiting. He does have some abdominal discomfort in the epigastric area that he relates to eating some chicken nuggets last night. Yesterday the patient spent 10 hours at the [employer]. No other complaints. Related Data Home Medications Medication Instructions Recorded Confirmed atorvastatin 20 mg tablet 1 tablet DAILY 10/06/21 10/07/21 losartan 25 mg tablet 1 tablet DAILY 10/06/21 10/07/21 metoprolol tartrate 25 mg tablet 0.5 tablet BID 10/06/21 10/07/21 aspirin 81 mg chewable tablet 1 tablet PO DAILY 10/07/21 10/07/21 Allergies Allergy/AdvReac Type Severity Reaction Status Date / Time No Known Allergies Allergy Verified 01/19/23 09:02 [facility] Past Medical History Medical History Coronary artery disease [place] in 2017 with coronary artery stent placement x [address] [facility] Hyperlipidemia Hypertension Type 2 diabetes mellitus Surgical History Surgical History History of heart artery stent Family History Family History Mother Cancer Father COPD (chronic obstructive pulmonary disease) Sibling Diabetes mellitus Social History Social History Smoking packs per day: 0.5 Smoking cigarettes per day: 10.0 Years smoked: 30 Smoking pack-years: 15.00 Smoking status: Current every day smoker Tobacco type: cigarettes Alcohol intake: never Substance use: never Spiritual care concerns: No Exam Narrative: APPEARANCE: No apparent distress. Head: atraumatic. EYES: EOMI, NOSE: Atraumatic NECK: Trachea midline RESPIRATORY: No increased rate of breathing, clear to auscultation CARDIOVASCULAR: RRR, no peripheral edema ABDOMINAL: Non-distended, mild epigastric discomfort, no guarding rebound MUSCULOSKELETAl: Tenderness to palpation in the right parathoracic region. No overlying skin changes NEURO: Alert. Moving 4/4 extremities SKIN:: Warm, dry. Normal color PSYCHIATRIC: Normal affect Course Vital Signs Vital signs: Vital Signs Temperature 97.9 F 03/30/24 07:30 Pulse Rate 89 03/30/24 07:30 Respiratory Rate 16 03/30/24 07:30 Blood Pressure 189/104 H 03/30/24 07:30 Pulse Oximetry 99 03/30/24 07:30 Oxygen Delivery Room Air 03/30/24 07:30 Temperature 99.1 F 03/30/24 11:41 Pulse Rate 74 03/30/24 11:41 Respiratory Rate 14 03/30/24 11:41 Blood Pressure 156/95 H 03/30/24 11:41 Pulse Oximetry 97 03/30/24 11:41 Oxygen Delivery Room Air 03/30/24 08:12 Medical Decision Making [facility] Narrative Medical decision making narrative: -Course: 63-year-old male presenting ED with chief complaint of back pain. Extensive workup including EKG, troponinx2 and CTA chest abdomen pelvis which did not reveal a cause of patient's symptoms. Pain is reproducible on palpation is likely musculoskeletal. Patient given Tylenol and muscle relaxers for his back pain. Patient given Maalox for his upset stomach. Patient will be discharged follow-up with his primary care physician and can return any time if he develops new or worsening symptoms. Patient had multiple incidental findings on his CT scan including pulmonary nodules and renal nodules and liver nodules. He has been informed of these results instructed follow-up with primary care physician for further evaluation. -DDX includes but is not limited to: ACS, PE, dissection, pneumonia, viral syndrome, pleurisy, muscle strain -Co-morbidities complicating care: history of CAD, hypertension diabetes -Independent interpretation of studies: labs imaging reviewed Independent EKG interpretation: Rhythm [sinus], Rate [87], [place] -[normal], [place] -[normal], QRS [narrow], QTC [normal], T waves -[negative for concerning inversions], ST Segments - [Negative for concerning elevations] Final interpretations: [Normal Sinus Rhythm] -Interventions: Maalox, Tylenol, Robaxin -Shared decision making / Disposition: discharge Vital Signs Vital Signs: Vital Signs Temperature 97.9 F 03/30/24 07:30 Pulse Rate 89 03/30/24 07:30 Respiratory Rate 16 03/30/24 07:30 Blood Pressure 189/104 H 03/30/24 07:30 Pulse Oximetry 99 03/30/24 07:30 Oxygen Delivery Room Air 03/30/24 07:30 Temperature 99.1 F 03/30/24 11:41 Pulse Rate 74 03/30/24 11:41 Respiratory Rate 14 03/30/24 11:41 Blood Pressure 156/95 H 03/30/24 11:41 Pulse Oximetry 97 03/30/24 11:41 Oxygen Delivery Room Air 03/30/24 08:12 Lab Data 03/30/24 07:53 03/30/24 07:53 Labs: Lab Results 03/30/24 03/30/24 Range/Units 07:53 10:49 WBC 11.6 H (4.5-10.0) K/mm3 RBC 5.22 (4.6-6.20) M/mm3 Hgb 16.1 (14.0-18.0) g/dL Hct 45.3 (42.0-52.0) % MCV 86.8 (80-100) fl MCH 30.8 (26-34) pg MCHC 35.5 (32-36) g/dl RDW 12.6 (11.5-14.5) % Plt Count 204 (150-375) k/mm3 MPV 11.1 H (7.4-10.4) fl Immature Gran % (Auto) 0.6 H (0-0.5) % Neut % (Auto) 78.0 H (45.5-73.1) % Lymph % (Auto) 12.3 L (18.3-44.2) % [place] % (Auto) 8.0 (2.6-8.5) % Eos % (Auto) 0.7 (0-4.4) % Baso % (Auto) 0.4 (0.2-1.2) % Lymph # (Auto) 1.43 (0.9-3.2) K/mm3 [place] # (Auto) 0.9 H (0.1-0.6) K/mm3 Eos # (Auto) 0.1 (0-0.3) K/mm3 Baso # (Auto) 0.1 (0.0-0.1) K/mm3 Abs Immat Gran (auto) 0.07 H (0.00-0.031) K/mm3 Absolute Neuts (auto) 9.1 H (1.3-6.7) K/mm3 Absolute Nucleated RBC 0.000 (0.0-0.012) K/mm3 Nucleated RBC % 0.0 (0.0-0.2) % PT 13.2 (11.1-14.7) Seconds INR 1.0 APTT 29.8 (22.3-36.8) Seconds Sodium 136 L (137-145) mmol/L Potassium 4.0 (3.4-5.0) mmol/L Chloride 102 (98-107) mmol/L Carbon Dioxide 26 (22-30) mmol/L Anion Gap 8 (4-12) mmol/L BUN 12 (9-20) mg/dL Creatinine 0.80 (0.7-1.3) mg/dL Estim Creat Clear Calc 84 ml/min Estimated GFR > 60 (59 - ) Glucose 168 H (65-110) mg/dL Calcium 9.3 (8.4-10.2) mg/dL Total Bilirubin 0.9 (0.2-1.3) mg/dL AST 23 (17-59) U/L ALT 18 (6-50) U/L Alkaline Phosphatase 110 (38-126) U/L Troponin I < 0.012 < 0.012 (0.000-0.034) ng/mL Total Protein 7.0 (6.3-8.2) g/dL Albumin 4.4 (3.5-5.1) g/dL Lipase 30 (23-300) U/L Discharge Plan Discharge Clinical Impression: Back pain, Incidental lung nodule, Abnormal finding on imaging of liver, Kidney mass Patient Disposition: Left Against Medical Advice Condition: Stable Instructions: Back Pain (ED) Additional Instructions: You were in the seen emergency department for back pain. We did not find a cause of your back pain our workup. Please try Tylenol for your pain. On your imaging we saw several nodules on your lungs, a lesion on your liver, and a mass in your kidney that need to be further evaluated by her primary care physician. Please make sure that you follow-up with them promptly for further imaging. Prescriptions: No Action atorvastatin 20 mg tablet 1 tablet DAILY losartan 25 mg tablet 1 tablet DAILY metoprolol tartrate 25 mg tablet 0.5 tablet BID Rx Instructions: 12.5mg BID lidocaine 5 % adhesive patch,medicated 1 patch topical DAILY Qty: 30 0RF Rx Instructions: leave on most painful area for up to 12 hrs cyclobenzaprine 5 mg tablet 5 mg PO TID PRN (Reason: muscle spasm) Qty: 15 0RF aspirin 81 mg Tablet,Chewable 1 tablet PO DAILY Follow-up/Referrals: UNKNOWN,DOCTOR [Primary Care Provider] -
[2024-03-30] MEDS: ACETAMINOPHEN 500 MG TABLET 1000 MG PO (13:31)
[2024-03-30] MEDS: MAG HYDROX/AL HYDROX/SIMETH 30 ML UDC PO (13:31)
[2024-03-30] MEDS: methocarbamoL 750 MG TABLET 1500 MG PO (13:32)
== END 2024-03-30 13:56 | disposition left against medical advice (07) ==
PROVIDERS: Emergency Provider Emergency Medicine
DX: M54.6 Pain in thoracic spine (principal); N28.89 Other specified disorders of kidney and ureter; R91.8 Other nonspecific abnormal finding of lung field; R93.2 Abnormal findings on diagnostic imaging of liver and biliary tract; I25.2 Old myocardial infarction; I25.10 Atherosclerotic heart disease of native coronary artery without angina pectoris; I10 Essential (primary) hypertension; E78.5 Hyperlipidemia, unspecified; E11.9 Type 2 diabetes mellitus without complications; F17.210 Nicotine dependence, cigarettes, uncomplicated; Z95.5 Presence of coronary angioplasty implant and graft; Z79.82 Long term (current) use of aspirin; Z79.899 Other long term (current) drug therapy; D35.01 Benign neoplasm of right adrenal gland; R94.31 Abnormal electrocardiogram [ECG] [EKG]
CPT/HCPCS: 36415; 71046; 71275; 74174; 80053; 83690; 84484; 85025; 85610; 85730; 93005; 99284; A9270; Q9967